=== PATIENT | male | born 1985 | race African-American/Black ===

== ENCOUNTER → 2018-11-09 | Outpatient (CLI) | payer SELFPAY ==
[~2018-11-09] MED LIST: AMOXICILLIN 8751 TAB PO; CEPHALEXIN500 M1 PO; NORCO 325 MG-51 TAB PO
[2018-11-09 18:19] LABS: HIV 1/2 Antibodies Non-Reactive; HIV-1p24 Antigen Non-Reactive
[2018-11-10 16:44] LABS: HEPATITIS C VIRUS ANTIBODY Negative (Negative)
== END ==
LOC: ZCOL.LAB 16:52
PROVIDERS: Family Medicine
DX: Z20.2 Contact with and (suspected) exposure to infections with a predominantly sexual mode of transmission (principal)